=== PATIENT | female | born 1965 | race Caucasian/White ===

== ENCOUNTER 2017-01-25 05:29 | Day surgery (SDC) | payer OTHER ==
[2017-01-25] MEDS ORDERED: LR 1,000 ML ONE (06:09)
[2017-01-25] MEDS ORDERED: MYLICON DROPS (DOSE) MISC ONE (07:29)
[2017-01-25] MEDS ORDERED: DIPRIVAN 1% ONE (08:06)
[2017-01-25] MEDS ORDERED: XYLOCAINE-MPF 2% ONE (08:14)
[2017-01-25 08:29] VITALS: BP 92/62
--- NOTE | 2017-01-25 09:06 | OPERATIVE NOTE ---
PROCEDURE DATE: 01/25/2017 DATE OF SURGERY: 01/25/2017. HISTORY AND REASON FOR PROCEDURE: This patient is 52 years old and she needs a screening colonoscopy. She never had a colonoscopy. She did not have any symptoms. Medications were given by anesthesiologist. Patient was monitored before, during, and after the procedure by them, and her condition remained stable. Photos taken from the cecum. SPECIMEN: None. DESCRIPTION OF PROCEDURE IN DETAIL: The patient was kept in the left lateral decubitus position. Rectal examination was performed. The anal canal lubricated. The Olympus video scope was introduced in the rectum, advanced to the cecum. The patient tolerated the procedure well and bowel preparation was good. FINDINGS: The rectum appeared normal. Sigmoid was normal. Descending colon was normal. The splenic flexure was normal. Transverse colon was quite redundant, but normal. Hepatic flexure was normal. Ascending colon was normal. Cecum was identified by the presence of ileocecal valve. It was also normal. There was no evidence of any polyps or any other lesions present. Air was taken out from the patient's colon and scope was removed from the patient. IMPRESSION: Normal colonoscopy. RECOMMENDATION: Colonoscopy in 10 years.
== END 2017-01-25 08:30 | disposition home or self-care (01) ==
LOC: ENDO 05:29
PROVIDERS: ATTEND Internal Medicine Gastroenterology
DX: Z12.11 Encounter for screening for malignant neoplasm of colon (principal)
CPT/HCPCS: J7120